=== PATIENT | female | born 1980 | race Caucasian/White ===

== ENCOUNTER 2021-10-18 08:30 | Day surgery (SDC) | payer OTHER ==
[2021-10-18 15:29] VITALS: BP 118/57
== END 2021-10-18 15:30 | disposition home or self-care (01) ==
LOC: ONC/OP 08:30
PROVIDERS: ATTEND Family Medicine
DX: Z45.2 Encounter for adjustment and management of vascular access device (principal); Z88.1 Allergy status to other antibiotic agents; Z88.2 Allergy status to sulfonamides
CPT/HCPCS: 99211; G0463